=== PATIENT | male | born 1990 | race Caucasian/White ===

== ENCOUNTER 2016-09-04 15:15 | Emergency (ER) | payer OTHER ==
[~2016-09-04] VITALS: Ht 170.2 cm; Wt 48.3 kg
[~2016-09-04 15:15] MED LIST: OXYC-57 PO
[2016-09-04 15:31] VITALS: BP 102/67; PULSE 93; TEMP 36.8; Ht 170.2 cm; Wt 48.3 kg
[2016-09-04 15:33] VITALS: O2SAT 98
== END 2016-09-04 15:55 | disposition left against medical advice (07) ==
LOC: C.EDB 15:17
DX: R06.00 Dyspnea, unspecified (principal)

== ENCOUNTER 2016-12-25 13:08 | Emergency (ER) | payer SELFPAY ==
[~2016-12-25] VITALS: Ht 170.2 cm; Wt 53.8 kg
[2016-12-25 13:31] VITALS: TEMP 36.5; O2SAT 98; Ht 170.2 cm; Wt 53.8 kg
[2016-12-25] MEDS ORDERED: OXYCODONE HCL IR 5 MG TAB (IMMEDIATE RELEASE) PO STA (13:44)
[2016-12-25] MEDS ORDERED: ONDANSETRON 4MG OD TAB PO ONE (13:45)
--- NOTE | 2016-12-25 14:33 | DIAGNOSTIC IMAGING REPORT ---
CERVICAL SPINE CT CT DOSE: 371.24 mGycm HISTORY: Pain PLEITEZ/neck pain TECHNIQUE: Multiaxial CT images of the cervical spine were performed and reformatted in the sagittal and coronal plane without the use of contrast. COMPARISON: 07/03/2010 FINDINGS: Mild concave deformity superior endplate T1. This appears represent an interval finding. Age is uncertain no was not present on the prior study. It is, however identified on MRI of 06/15/2016. The remainder the cervical spine is unremarkable. There are no new or additional findings. IMPRESSION: No acute process of the cervical spine. Slight concave deformity superior endplate T1 considered nonacute. Electronically signed by: Avery Atwood M.D. 12/25/2016 2:32 PM Dictated Date/Time: 12/25/2016 2:30 PM
--- NOTE | 2016-12-25 14:36 | DIAGNOSTIC IMAGING REPORT ---
CT OF THE HEAD WITHOUT CONTRAST CLINICAL HISTORY: Headache with visual disturbance. COMPARISON STUDY: Head CT June 03, 2012. CT DOSE: 638.56 mGycm TECHNIQUE: Helical axial images of the head were obtained without IV contrast. Automated exposure control was utilized for the study. FINDINGS: No acute intracranial hemorrhage, midline shift or mass effect is present. Ventricular system is normal. Basilar cisterns are patent. There are no extra-axial collections. Holland-white differentiation is preserved. There are no findings to suggest acute dural sinus thrombosis or acute territorial infarct. Bilateral basal ganglia calcification is unchanged. There are no significant calvarial abnormalities. Visualized portions of the sinuses and mastoid air cells are clear. IMPRESSION: No acute intracranial findings. Electronically signed by: Jose Long M.D. 12/25/2016 2:35 PM Dictated Date/Time: 12/25/2016 2:32 PM
[2016-12-25] MEDS ORDERED: OXYC1TAB3 PO (15:09)
[2016-12-25] MEDS ORDERED: ONDA4TAB10 SL (15:09)
[2016-12-25 15:11] VITALS: BP 82/39; PULSE 73
--- NOTE | 2016-12-25 22:28 | EMERGENCY ROOM VISIT NOTE ---
History First contact with patient: 13:34 Chief Complaint: HEADACHE Stated Complaint: HEAD ACHE History of Present Illness The patient is a 26 year old male who presents to the Emergency Room with complaints of a headache, blurred vision, light sensitivity, neck discomfort and tingling in his fingertips of both hands. The patient reports that he was at work this morning when symptoms developed approximately 2 hours prior to arrival. He denies performing any significant strenuous activities, moving 2x4s this morning. He reports that the tingling in his fingers is intermittent. He does have slightly worsening tingling sensation with movement of the neck. The patient reports that he did see a chiropractor on Sunday for an adjustment, but did not have any worsening neck pain after these procedures. The patient reports that he has a prior history of undiagnosed migraines, and reports that he usually has light sensitivity and blurred vision. However, he reports that this headache is different. It was not thunderclap onset. The patient does report mild nausea. He reports that the visual disturbance is like little wiggly lines. He denies any visual field defects. The patient has a significant history of cervical spine and multiple thoracic compression fractures related to a work injury from last April when roof trusses fell onto his head. He was treated by Dr. Ely, and has been released from their care with his last appointment approximately 2 months ago. The patient rates his discomfort a 10 out of 10. Review of Systems HEENT: Denies dizziness, visual problems, hearing loss, tinnitus. Denies difficulty swallowing or oral lesions. PULMONARY: Denies cough, shortness of breath, sputum production or hemoptysis. CARDIOVASCULAR: Denies chest pain, palpitations, dyspnea on exertion, orthopnea or peripheral edema. GASTROINTESTINAL: Denies diarrhea, constipation, nausea, vomiting, or abdominal pain. GENITOURINARY: Denies dysuria, frequency, urgency or nocturia. NEUROLOGIC: Denies history of epilepsy, CVA, TIA or chronic headaches. MUSCULOSKELETAL: See history of present illness for history of cervical spine and thoracic compression fractures. SKIN: Denies rashes or lesions. PSYCHIATRIC: Denies history of depression or mental illness. ENDOCRINE: Denies history of diabetes or thyroid disorders. Past Medical/Surgical History Medical Problems: (1) Acute bronchitis (2) Cough (3) Dental caries (4) Pain, dental (5) Tietze's Disease Family History FH: diabetes mellitus FH: hypertension Social History Smoking Status: Current Every Day Smoker Alcohol Use: none Drug Use: none Marital Status: in relationship Housing Status: lives with significant other Occupation Status: employed Current/Historical Medications Scheduled Ondasetron Odt (Zofran Odt), 4 MG SL Q6H Scheduled PRN Oxycodone Ir (Roxicodone Ir), 1-2 TAB PO Q4H PRN for Pain Allergies Coded Allergies: No Known Allergies (Verified , 06/05/16) Physical Exam Vital Signs Date Time Temp Pulse Resp B/P Pulse Ox O2 Delivery O2 Flow Rate FiO2 12/25/16 15:11 73 16 82/39 Room Air 12/25/16 13:31 36.5 91 18 116/73 98 Room Air Physical Exam CONSTITUTIONAL: Healthy and well nourished. Alert and oriented X 3 with positive affect. Patient appears in mild to moderate discomfort from pain. HEENT: Normocephalic, atraumatic. Pupils equal, round and reactive. Ears and nares are clear. The patient is slightly photophobic, precluding funduscopic exam. No subconjunctival hemorrhage or conjunctival pallor. NECK: Right lateral gaze causes discomfort into the left upper extremity. No JVD or carotid bruits. The patient has mild tenderness to palpation of the cervical musculature. No palpable rigidity. RESPIRATORY: Clear to auscultation bilaterally with no wheezing, crackles, rhonchi or stridor. CARDIOVASCULAR: Regular rate and rhythm with no murmurs, rubs or gallops. GASTROINTESTINAL: Bowel sounds present in all quadrants. Soft and nontender to palpation. MUSCULOSKELETAL: Equal hand furniture sprayer bilaterally. The patient has no worsening pain with range of motion of the shoulders. No tenderness to palpation through the intrascapular region or trapezius muscles. INTEGUMENTARY: No rash or other significant dermatologic conditions noted. NEUROLOGIC: Cranial nerves II-XII grossly intact. No focal neurologic deficits noted. Normal finger to nose test. Negative pronator drift. No ataxia with ambulation. Medical Decision & Procedures ER Provider Diagnostic Interpretation: Noncontrast CT of the head does not show any intracranial bleed, midline shift or mass effect. Radiologist report is as follows: CT OF THE HEAD WITHOUT CONTRAST CLINICAL HISTORY: Headache with visual disturbance. COMPARISON STUDY: Head CT June 03, 2012. CT DOSE: 638.56 mGycm TECHNIQUE: Helical axial images of the head were obtained without IV contrast. Automated exposure control was utilized for the study. FINDINGS: No acute intracranial hemorrhage, midline shift or mass effect is present. Ventricular system is normal. Basilar cisterns are patent. There are no extra-axial collections. Holland-white differentiation is preserved. There are no findings to suggest acute dural sinus thrombosis or acute territorial infarct. Bilateral basal ganglia calcification is unchanged. There are no significant calvarial abnormalities. Visualized portions of the sinuses and mastoid air cells are clear. IMPRESSION: No acute intracranial findings. Noncontrast CT of the cervical spine does not show any acute fracture, lordotic reversal or subluxation. Radiologist report is as follows: CERVICAL SPINE CT CT DOSE: 371.24 mGycm HISTORY: Pain PLEITEZ/neck pain TECHNIQUE: Multiaxial CT images of the cervical spine were performed and reformatted in the sagittal and coronal plane without the use of contrast. COMPARISON: 07/03/2010 FINDINGS: Mild concave deformity superior endplate T1. This appears represent an interval finding. Age is uncertain no was not present on the prior study. It is, however identified on MRI of 06/15/2016. The remainder the cervical spine is unremarkable. There are no new or additional findings. IMPRESSION: No acute process of the cervical spine. Slight concave deformity superior endplate T1 considered nonacute. Medications Administered Medications (Trade) Dose Ordered Sig/Lizzie Route Start Time Stop Time Status Last Admin Dose Admin Oxycodone HCl (Roxicodone Immediate Rel Tab) 5 mg NOW STAT PO 12/25/16 13:44 12/25/16 13:46 DC 12/25/16 13:58 5 MG Ondansetron HCl (Zofran Odt) 4 mg ONE ONCE PO 12/25/16 13:45 12/25/16 13:46 DC 12/25/16 13:59 4 MG ED Course Patient history and physical exam were performed. Nurse's notes were reviewed. The patient was administered OxyIR 5 mg and Zofran 4 mg ODT for pain. Noncontrast CT of the head and cervical spine did not show any intracranial bleed or fracture. The patient was advised of his CT findings. With his given visual disturbance and photophobia, I do believe that the patient is suffering from a migraine headache. He was instructed to rest and remain hydrated. The patient was provided prescriptions for OxyIR and Zofran ODT. He was instructed to follow-up with his PCP within the next 2-3 days for recheck. Return to the emergency department sooner for any significantly worsening symptoms. The patient was happy with plan of care, voiced understanding of all discharge instructions, and rated his headache a 5 out of 10 at the time of discharge. He refused any additional analgesics prior to discharge. Medical Decision See previous section Impression Primary Impression: Headache Departure Information Prescriptions Ondasetron Odt (ZOFRAN ODT) 4 Mg Tab 4 MG SL Q6H for Nausea, #10 TAB Prov: Sheldon Storm PA 12/25/16 Oxycodone Ir (Roxicodone Ir) 5 Mg Tab 1-2 TAB PO Q4H Y for Pain, #15 TAB For Initial Treatment Prov: Sheldon Storm PA 12/25/16 Referrals No Doctor, Assigned (PCP) Patient Instructions My [facility] Problem Qualifiers Primary Impression: Headache Headache type: other headache syndrome Qualified Codes: G44.89 - Other headache syndrome
== END 2016-12-25 15:20 | disposition home or self-care (01) ==
LOC: C.EDB 13:09 → C.EDC 15:20
DX: G44.89 Other headache syndrome (principal); M94.0 Chondrocostal junction syndrome [Tietze]; Z83.3 Family history of diabetes mellitus; Z82.49 Family history of ischemic heart disease and other diseases of the circulatory system; F17.210 Nicotine dependence, cigarettes, uncomplicated

== ENCOUNTER 2017-01-22 18:21 | Emergency (ER) | payer OTHER ==
[~2017-01-22] VITALS: Ht 170.2 cm; Wt 51.0 kg
[~2017-01-22 18:21] MED LIST changes: +ONDA4TAB10 SL; -OXYC-57 PO; +OXYC1TAB3 PO
[2017-01-22 18:37] VITALS: TEMP 37; Ht 170.2 cm; Wt 51.0 kg
[2017-01-22] MEDS ORDERED: OXYCODONE HCL IR 5 MG TAB (IMMEDIATE RELEASE) PO STA (18:46)
--- NOTE | 2017-01-22 18:55 | EMERGENCY ROOM VISIT NOTE ---
History Report prepared by Zabrina: Livia Bey Under the Supervision of: Dr. Luciano June D.O. First contact with patient: 18:40 Chief Complaint: GROIN PAIN Stated Complaint: GROIN PAIN History of Present Illness The patient is a 26 year old male who presents to the Emergency Room with complaints of constant groin pain beginning yesterday. The patient states that he was moving dirt around with his dad yesterday and noticed that he got a bug bite on his right butt cheek. He reports that he is also having soreness in his groin and body aches as well. He notes that he has never had lyme disease before and has no medical problems or previous surgeries. The patient states that he broke his back and neck previously. Source of History: patient Onset: yesterday Position: other (groin) Quality: other (sore) Timing: constant Note: Pt has body aches and bug bite. Review of Systems See HPI for pertinent positives & negatives. A total of 10 systems reviewed and were otherwise negative. Past Medical & Surgical Medical Problems: (1) Acute bronchitis (2) Cough (3) Dental caries (4) Pain, dental (5) Tietze's Disease Family History FH: diabetes mellitus FH: hypertension Social History Smoking Status: Current Every Day Smoker Alcohol Use: none Drug Use: none Marital Status: in relationship Housing Status: lives with significant other Occupation Status: employed Current/Historical Medications Scheduled Doxycycline (Monohydrate) (Doxycycline Monohydrate), 100 MG PO BID Ondasetron Odt (Zofran Odt), 4 MG SL Q6H Scheduled PRN Oxycodone Immediate Rel Tab (Roxicodone Ir), 1-2 TAB PO Q4H PRN for Severe Pain Oxycodone Ir (Roxicodone Ir), 1-2 TAB PO Q4H PRN for Pain Allergies Coded Allergies: No Known Allergies (Verified , 06/05/16) Physical Exam Vital Signs Date Time Temp Pulse Resp B/P Pulse Ox O2 Delivery O2 Flow Rate FiO2 01/22/17 20:02 82 18 111/71 97 Room Air 01/22/17 18:37 37.0 93 18 108/69 98 Room Air Physical Exam GENERAL: Patient is awake, alert, and in no acute distress. Patient is resting comfortably and showing no signs of anxiety EYES: The conjunctivae are clear. The pupils are round and reactive. EARS, NOSE, MOUTH AND THROAT: The nose is without any evidence of any deformity. Mucous membranes are moist tongue is midline NECK: The neck is nontender and supple. RESPIRATORY: Normal respiratory effort is noted there is no evidence of wheezing rhonchi or rales CARDIOVASCULAR: Regular rate and rhythm noted there no murmurs rubs or gallops normal S1 normal S2 GASTROINTESTINAL: The abdomen is soft. Bowel sounds are present in all quadrants. Abdomen is nontender PELVIS: The Pelvis is stable. No tenderness to palpation is noted. MUSCULOSKELETAL/EXTREMITIES: There is no evidence of gross deformity full range of motion is noted in the hips and shoulders SKIN: There is no obvious evidence of any rash. There are no petechiae, pallor or cyanosis noted. There was no pedal edema noted, there was a Bullseye rash over the right buttock, there was right inguinal adenopathy noted which was tender to palpation NEUROLOGIC: Patient is awake alert and oriented x3 Medical Decision & Procedures Laboratory Results 01/22/17 19:08 Red Blood Count 4.85, Mean Corpuscular Volume 88.0, Mean Corpuscular Hemoglobin 29.3, Mean Corpuscular Hemoglobin Concent 33.3, Mean Platelet Volume 10.6, Neutrophils (%) (Auto) 66.3, Lymphocytes (%) (Auto) 22.0, Monocytes (%) (Auto) 7.1, Eosinophils (%) (Auto) 4.2, Basophils (%) (Auto) 0.3, Neutrophils # (Auto) 5.69, Lymphocytes # (Auto) 1.89, Monocytes # (Auto) 0.61, Eosinophils # (Auto) 0.36, Basophils # (Auto) 0.03 01/22/17 19:08 Test 01/22/17 19:08 White Blood Count 8.59 K/uL (4.8-10.8) Red Blood Count 4.85 M/uL (4.7-6.1) Hemoglobin 14.2 g/dL (14.0-18.0) Hematocrit 42.7 % (42-52) Mean Corpuscular Volume 88.0 fL (80-100) Mean Corpuscular Hemoglobin 29.3 pg (25-34) Mean Corpuscular Hemoglobin Concent 33.3 g/dl (32-36) Platelet Count 174 K/uL (130-400) Mean Platelet Volume 10.6 fL (7.4-10.4) Neutrophils (%) (Auto) 66.3 % Lymphocytes (%) (Auto) 22.0 % Monocytes (%) (Auto) 7.1 % Eosinophils (%) (Auto) 4.2 % Basophils (%) (Auto) 0.3 % Neutrophils # (Auto) 5.69 K/uL (1.4-6.5) Lymphocytes # (Auto) 1.89 K/uL (1.2-3.4) Monocytes # (Auto) 0.61 K/uL (0.11-0.59) Eosinophils # (Auto) 0.36 K/uL (0-0.5) Basophils # (Auto) 0.03 K/uL (0-0.2) RDW Standard Deviation 42.3 fL (36.4-46.3) RDW Coefficient of Variation 13.0 % (11.5-14.5) Immature Granulocyte % (Auto) 0.1 % Immature Granulocyte # (Auto) 0.01 K/uL (0.00-0.02) Anion Gap 4.0 mmol/L (3-11) Est Creatinine Clear Calc Drug Dose 83.5 ml/min Estimated GFR () 125.8 Estimated GFR (Non- 108.5 BUN/Creatinine Ratio 20.1 (10-20) Calcium Level 8.3 mg/dl (8.5-10.1) Total Bilirubin 0.2 mg/dl (0.2-1) Direct Bilirubin < 0.1 mg/dl (0-0.2) Aspartate Amino Transf (AST/SGOT) 14 U/L (15-37) Alanine Aminotransferase (ALT/SGPT) 19 U/L (12-78) Alkaline Phosphatase 64 U/L (45-117) Total Protein 6.4 gm/dl (6.4-8.2) Albumin 3.4 gm/dl (3.4-5.0) Lyme Disease IgG Antibody NEG (NEG) Lyme Disease IgM Antibody NEG (NEG) Laboratory results per my review. Medications Administered Medications (Trade) Dose Ordered Sig/Lizzie Route Start Time Stop Time Status Last Admin Dose Admin Oxycodone HCl (Roxicodone Immediate Rel Tab) 5 mg NOW STAT PO 01/22/17 18:46 01/22/17 18:48 DC 01/22/17 18:55 5 MG Doxycycline Hyclate (Vibramycin Cap) 200 mg ONE ONCE PO 01/22/17 19:00 01/22/17 19:01 DC 01/22/17 18:55 200 MG ED Course 1839: The patient was evaluated in room B5. A complete history and physical examination were performed. 1845: Oxycodone HCl 5mg PO. 1899: Vibramycin Cap 200mg PO. 2031: Upon reevaluation, the patient is doing well. I discussed the results and treatment plan with the patient. He verbalized agreement of the treatment plan. The patient was discharged home. Medical Decision Differential diagnosis: Etiologies such as contact dermatitis, viral exanthem, urticaria, allergic reaction, Perez-Guero syndrome, toxic epidermal necrolysis, erythema multiforme, cellulitis, scabies, HSV, varicella, zoster, eczema, staph scalded skin syndrome, fungal infection, as well as others were entertained. Medication Reconciliation: I attest that I have personally reviewed the patient' s current medications list. Blood pressure screening: Patient was found to have normal blood pressure on screening and does not require follow-up. Nursing notes reviewed. The patient is a 26-year-old male who presented to the emergency department for an evaluation of right groin pain. The patient appears to have inguinal adenopathy on the right and also noticed a rash on his right buttocks. The rash appears to be consistent with Lyme disease. He does admit that he has risk factors including significant outdoor time where he could've had a tick bite. The patient was started on doxycycline and pain medication in the emergency department. He was encouraged to follow-up with his primary care physician for repeat laboratory studies. He was also encouraged to continue all medications as prescribed and return to the emergency department immediately if symptoms change worsen or the need arises. Impression Primary Impression: Lyme disease, acute Scribe Attestation The scribe's documentation has been prepared under my direction and personally reviewed by me in its entirety. I confirm that the note above accurately reflects all work, treatment, procedures, and medical decision making performed by me. Departure Information Dispostion Home / Self-Care Prescriptions Doxycycline (Monohydrate) (DOXYCYCLINE MONOHYDRATE) 100 Mg Tab 100 MG PO BID, #42 TABS Prov: Luciano June, DO 01/22/17 Oxycodone Immediate Rel Tab (ROXICODONE IR) 5 Mg Tab 1-2 TAB PO Q4H Y for Severe Pain, #24 TAB Prov: Luciano June, DO 01/22/17 Referrals No Doctor, Assigned (PCP) Forms HOME CARE DOCUMENTATION FORM, IMPORTANT VISIT INFORMATION, WORK / SCHOOL INSTRUCTIONS Patient Instructions Bites Tick, My [employer] Additional Instructions Continue all medications as prescribed. Continue using Motrin and Tylenol as directed for mild pain. Follow-up with your family next week for reevaluation. I would recommend repeat laboratory studies.
[2017-01-22] MEDS ORDERED: DOXYCYCLINE HYCLATE 100 MG CAP PO ONE (19:00)
[2017-01-22] MEDS ORDERED: DOXY100T17 PO (19:15)
[2017-01-22] MEDS ORDERED: OXYC1TAB3 PO (19:15)
[2017-01-22 19:20] LABS: BASO % 0.3 %; BASO ABS # 0.03 K/uL (0-0.2); COMPLETE YES; EOS % 4.2 %; HEMATOCRIT 42.7 % (42-52); IG% 0.1 %; LYMPH ABS # 1.89 K/uL (1.2-3.4); MEAN CORPUSCULAR HEMOGLOBIN 29.3 pg (25-34); MEAN CORPUSCULAR HGB CONC 33.3 g/dl (32-36); MEAN PLATELET VOLUME 10.6 fL (7.4-10.4); MONO % 7.1 %; NEUT % 66.3 %; PLATELET COUNT 174 K/uL (130-400); RED BLOOD COUNT 4.85 M/uL (4.7-6.1); WHITE BLOOD COUNT 8.59 K/uL (4.8-10.8)
[2017-01-22 19:38] LABS: ALT/SGPT 19 U/L (12-78); AST/SGOT 14 U/L (15-37); BLOOD UREA NITROGEN 19 mg/dl (7-18); BUN/CREATININE RATIO 20.1 (10-20); CALCIUM 8.3 mg/dl (8.5-10.1); CARBON DIOXIDE 30 mmol/L (21-32); CHLORIDE 110 mmol/L (98-107); CREATININE 0.95 mg/dl (0.60-1.40); GLUCOSE 92 mg/dl (70-99); POTASSIUM 3.7 mmol/L (3.5-5.1); SODIUM 144 mmol/L (136-145)
[2017-01-22 19:41] LABS: ALKALINE PHOSPHATASE 64 U/L (45-117)
[2017-01-22 20:02] VITALS: BP 111/71; PULSE 82; O2SAT 97
[2017-01-22 20:09] LABS: LYME DISEASE AB IGG NEG (NEG); LYME DISEASE AB IGM NEG (NEG)
== END 2017-01-22 20:32 | disposition home or self-care (01) ==
LOC: C.EDB 18:22
DX: A69.20 Lyme disease, unspecified (principal); M94.0 Chondrocostal junction syndrome [Tietze]; Z83.3 Family history of diabetes mellitus; Z82.49 Family history of ischemic heart disease and other diseases of the circulatory system; F17.210 Nicotine dependence, cigarettes, uncomplicated

== ENCOUNTER 2017-02-03 19:50 | Emergency (ER) | payer SELFPAY ==
[~2017-02-03] VITALS: Ht 170.2 cm; Wt 50.3 kg
[~2017-02-03 19:50] MED LIST changes: +DOXY100T17 PO
[2017-02-03 19:53] VITALS: TEMP 36.6; Ht 170.2 cm; Wt 50.3 kg
[2017-02-03] MEDS ORDERED: ACETAMINOPHEN 500 MG TAB PO STA (20:25)
[2017-02-03 20:40] VITALS: BP 121/78; PULSE 78; O2SAT 97
--- NOTE | 2017-02-04 02:01 | EMERGENCY ROOM VISIT NOTE ---
History Report prepared by Zabrina: Carlos Borden Under the Supervision of: Dr. Narinder Cool D.O. First contact with patient: 20:01 Chief Complaint: HAND PAIN/INJURY Stated Complaint: HAND PAIN,BI LAT History of Present Illness The patient is a 26 year old male who presents to the Emergency Room with complaints of a constant burning sensation in both of his hands starting three days ago. He reports his pain as a 7/10 in severity. The patient states that he was diagnosed with Lyme's disease two weeks ago. He states that he was given a blood test that showed he was negative for Lyme's disease, but the doctor's gave him Doxycycline, which he has been consistently taking since. The patient admits he was out in the sun three days ago and noticed that his hands became red. He reports that the pain felt like a burning and tingling sensation in his hands. The patient denies wearing any gloves or a long sleeve shirt while out in the sun. He admits that he broke his neck and back a few months ago causing him to stop working. The patient denies headache, change in vision, fevers, chest pain, shortness of breath, nausea, vomiting, diarrhea, and pain with urination. He also denies any pets, new medication, or new eating/drinking habits. Source of History: patient Onset: three days ago Position: hand (bilateral) Symptom Intensity: 7/10 Quality: tingling, burning, other Timing: constant Associated Symptoms: No fevers, No headache, No cough, No chest pain, No nausea, No vomiting, No melena, No urinary symptoms Review of Systems See HPI for pertinent positives & negatives. A total of 10 systems reviewed and were otherwise negative. Past Medical & Surgical Medical Problems: (1) Acute bronchitis (2) Cough (3) Dental caries (4) Pain, dental (5) Tietze's Disease Family History FH: diabetes mellitus FH: hypertension Social History Smoking Status: Former Smoker Alcohol Use: none Drug Use: none Marital Status: in relationship Housing Status: lives with significant other Occupation Status: employed Current/Historical Medications Scheduled Doxycycline (Monohydrate) (Doxycycline Monohydrate), 100 MG PO BID Ondasetron Odt (Zofran Odt), 4 MG SL Q6H Scheduled PRN Oxycodone Immediate Rel Tab (Roxicodone Ir), 1-2 TAB PO Q4H PRN for Severe Pain Allergies Coded Allergies: No Known Allergies (Verified , 06/05/16) Physical Exam Vital Signs Date Time Temp Pulse Resp B/P (MAP) Pulse Ox O2 Delivery O2 Flow Rate FiO2 02/03/17 20:40 78 16 121/78 97 02/03/17 19:53 36.6 74 16 113/74 97 Room Air Physical Exam GENERAL: sitting up in bed, alert, well appearing, well nourished, no distress, non-toxic EYE EXAM: normal conjunctiva, PERRL and EOM's grossly intact OROPHARYNX: no exudate, no erythema, lips, buccal mucosa, and tongue normal and mucous membranes are moist NECK: supple, no nuchal rigidity, no adenopathy, non-tender LUNGS: Clear to auscultation. Normal chest wall mechanics HEART: no murmurs, S1 normal and S2 normal ABDOMEN: abdomen soft, non-tender, normo-active bowel sounds, no masses, no rebound or guarding. SKIN: Erythema to bilateral hands; entirety of the first and second digits and along the metacarpals tracking to the wrist on the 3rd to 5th digits. Slight erythema to bilateral forearms, dorsal aspect, tracking to elbow. UPPER EXTREMITIES: upper extremities are grossly normal. LOWER EXTREMITIES: No pitting edema. NEURO EXAM: Normal sensorium Medical Decision & Procedures Medications Administered Medications (Trade) Dose Ordered Sig/Lizzie Route Start Time Stop Time Status Last Admin Dose Admin Acetaminophen (Tylenol Tab) 1,000 mg NOW STAT PO 02/03/17 20:25 02/03/17 20:26 DC 02/03/17 20:37 1,000 MG ED Course ED COURSE: Vital signs were reviewed and showed hypertensive. The patients medical record was reviewed The above diagnostic studies were performed and reviewed. ED treatments and interventions as stated above. 2011: The patient was evaluated in room B09. A complete history and physical examination was performed. 2024: Tylenol Tab 1000 mg PO. 2037: Upon reevaluation, the patient is feeling better. I discussed the findings and the treatment plan with the patient. He verbalizes agreement and understanding. He was discharged home. Medical Decision The differential diagnosis includes: Etiologies such as contact dermatitis, viral exanthem, urticaria, allergic reaction, Perez-Guero syndrome, toxic epidermal necrolysis, erythema multiforme, cellulitis, scabies, HSV, varicella, zoster, eczema, staph scalded skin syndrome, fungal infection, as well as others were entertained. Patient is a 26-year-old male who is currently on doxycycline and presents the ER for bilateral hand pain. On exam he does have erythema which does have linear cut off sign appears to be a sunburn. Patient for active and passive range of motion. This is not a cellulitis. I do not believe that this is allergic. Patient was instructed to refrain from being in the sun while on doxycycline and discharged follow-up with his PCP. Discussed with Pt concerning signs and symptoms to watch out for. Pt was instructed to follow up with their PCP and discussed with the patient their option to return to the ED at anytime for persistent or worsening symptoms. The appropriate anticipatory guidance and out-patient management, including indications for return to the emergency department, were explained at length to the patient and understood. Impression Primary Impression: [place] Scribe Attestation The scribe's documentation has been prepared under my direction and personally reviewed by me in its entirety. I confirm that the note above accurately reflects all work, treatment, procedures, and medical decision making performed by me. Departure Information Dispostion Home / Self-Care Forms HOME CARE DOCUMENTATION FORM, IMPORTANT VISIT INFORMATION Patient Instructions My [facility] [place] Additional Instructions Please follow up with your primary care doctor with in the next 24 hours. Any worsening of your symptoms, please return to the ED immediately. This includes trouble breathing, trouble swallowing, worsening rash, fevers greater than 100.4 , or any other concerning signs or symptoms from your standpoint. Please apply aloe as needed. Please take Tylenol or Motrin as needed for pain. Please refrain from being in the sun while taking doxycycline.
== END 2017-02-03 20:42 | disposition home or self-care (01) ==
LOC: C.EDB 19:51
DX: L55.9 Sunburn, unspecified (principal); Z87.898 Personal history of other specified conditions; Z87.891 Personal history of nicotine dependence; Z83.3 Family history of diabetes mellitus; Z82.49 Family history of ischemic heart disease and other diseases of the circulatory system

== ENCOUNTER 2017-06-25 15:35 | Emergency (ER) | payer OTHER ==
[~2017-06-25] VITALS: Ht 170.2 cm; Wt 52.5 kg
[2017-06-25 15:45] VITALS: TEMP 36.9; Ht 170.2 cm; Wt 52.5 kg
[2017-06-25] MEDS ORDERED: KETOROLAC TROMETHAMINE 60 MG/2 ML VIAL IM STA (16:04)
--- NOTE | 2017-06-25 16:23 | EMERGENCY ROOM VISIT NOTE ---
History First contact with patient: 15:53 Chief Complaint: HEADACHE Stated Complaint: HEADACHE History of Present Illness The patient is a 26 year old male who presents to the Emergency Room with complaints of left-sided head and neck pain which has been ongoing for several months. The patient reports that he sustained an injury at work approximately one year ago when several trusses fell onto him. He reports he had fractures in his neck and back at that time. He has been following up with the Workmen's Compensation provider in [place]. He reports he had a CT and MRI performed at the beginning of this month for increasing pain. He was told that there was fluid in the sinuses and was referred to another specialist for this. The patient reports that he is sick of dealing with the pain. The pain is in the left side of the neck and radiates into the head and occasionally into the left arm. He rates his overall discomfort a 9/10. He has not been given any prescriptions for pain medications and has not taken any anti-inflammatories for his neck pain. He denies any new injuries. He denies numbness or weakness of the arm. Review of Systems A complete 10 point review of systems was reviewed with the patient with pertinent positives and negatives as per history of present illness. All else were negative. Past Medical/Surgical History Medical Problems: (1) Acute bronchitis (2) Cough (3) Dental caries (4) Pain, dental (5) Tietze's Disease Family History FH: diabetes mellitus FH: hypertension Social History Smoking Status: Current Every Day Smoker Alcohol Use: none Drug Use: none Marital Status: in relationship Housing Status: lives with significant other Occupation Status: employed Current/Historical Medications Scheduled Amoxicillin & Pot Clavulanate (Augmentin 875-125 mg), 1 TAB PO BID Naproxen (Naprosyn), 500 MG PO BID Scheduled PRN Ibuprofen Tab (Advil), 400-600 MG PO Q6H PRN for Headache or Pain Physical Exam Vital Signs Date Time Temp Pulse Resp B/P (MAP) Pulse Ox O2 Delivery O2 Flow Rate FiO2 06/25/17 17:07 76 16 108/69 96 Room Air 06/25/17 15:45 36.9 86 20 114/79 98 Room Air Physical Exam VITALS: Vitals are noted on the nurse's note and reviewed by myself. Vital signs stable. GENERAL: This is a 26-year-old male, in no acute distress, nondiaphoretic, well- developed well-nourished. SKIN: The skin was without rashes, erythema, edema, or bruising. There is no tenting of the skin. Capillary reflex less than 2 seconds. HEAD: Normocephalic atraumatic. EARS: External auditory canals clear, tympanic membranes pearly merino without erythema or effusion bilaterally. EYES: Pupils equal round and reactive to light and accommodation. Conjunctivae without injection, sclerae without icterus. MOUTH: Mucous membranes moist. HEART: Regular rate and rhythm without murmurs gallops or rubs. LUNGS: Clear to auscultation bilaterally without wheezes, rales or rhonchi. MUSCULOSKELETAL: There is tenderness to palpation of the left cervical paraspinous muscles. No tenderness of the cervical spinous processes. Full range of motion in all extremities. Strength 5/5 throughout. NEURO: Patient was alert and oriented to person place and time. Normal sensation to light and sharp touch. Medical Decision & Procedures Medications Administered Medications (Trade) Dose Ordered Sig/Lizzie Route Start Time Stop Time Status Last Admin Dose Admin Ketorolac Tromethamine (Toradol Inj) 60 mg NOW STAT IM 06/25/17 16:04 06/25/17 16:05 DC 06/25/17 16:15 60 MG ED Course The patient was evaluated as above. Patient was medicated with 60 mg Toradol IM. Patient was reevaluated and stated he was having some relief. Discharge instructions were reviewed with the patient. The patient verbalized understanding of my assessment and treatment plan and was discharged home in good condition. Medical Decision Differential diagnosis includes cervical radiculopathy, herniated disc, muscular pain, migraine headaches, among others. The patient is a 26-year-old male who presents today complaining of left-sided neck pain and headaches which have been present for several months. The patient has been following up with Workmen's Compensation for one year after an injury to the neck. He has had recent imaging including CT and MRI of the neck. I do not feel that further workup is necessary at this time. I did offer the patient a prescription of an anti-inflammatory and an injection of Toradol here. The patient also reports that he was told he had a sinus infection, but was not treated with any antibiotics. I am unsure if he truly has a sinusitis, but did offer to place him on a course of antibiotics. He was encouraged to follow-up with his own Workmen's Compensation provider and contact them regarding possible referral to pain management. Based on the patient's presentation and work up, I feel the patient is stable for outpatient treatment. The patient was educated to return to the emergency department for any worsening of their current condition or new/concerning symptoms. He will follow up with his Workmen's Compensation physician. Medication Reconcilliation Current Medication List: was personally reviewed by me Blood Pressure Screening Patient's blood pressure: Normal blood pressure Impression Primary Impression: Chronic neck pain Departure Information Dispostion Home / Self-Care Condition GOOD Prescriptions Amoxicillin & Pot Clavulanate (Augmentin 875-125 mg) 1 Tab Tab 1 TAB PO BID for 7 Days, #14 TAB Prov: Lyndsay Silver PA-C 06/25/17 Naproxen (Naprosyn) 500 Mg Tab 500 MG PO BID for 7 Days, #14 TAB Prov: Lyndsay Silver PA-C 06/25/17 Referrals No Doctor, Assigned (PCP) Patient Instructions My [facility] Additional Instructions You have been treated in the Emergency Department for Neck Pain. Naprosyn as prescribed. For pain control, you can use the following ozlz-hxy-zbxbdad medicines (if >12 yo): - Regular strength (325mg/tab) Tylenol (acetaminophen) 2 tabs every 4-6 hours as needed. Do not exceed 12 tablets in a 24 hour period. Avoid taking more than 4 grams (4000 mg) of Tylenol per day. This includes any other sources of acetaminophen you may take on a regular basis. Contact your workman's comp doctor about a possible referral to pain management. Return to the Emergency Department if your current symptoms worsen despite treatment course outlined above, or if you develop any of the following symptoms : intractable pain despite aforementioned treatment course, numbness/weakness of the arms, or any other new/concerning symptoms.
[2017-06-25] MEDS ORDERED: IBUP-103 PO (16:32)
[2017-06-25] MEDS ORDERED: NAPR-1169 PO (16:43)
[2017-06-25] MEDS ORDERED: AMOX875T PO (16:43)
[2017-06-25 17:07] VITALS: BP 108/69; PULSE 76; O2SAT 96
== END 2017-06-25 17:07 | disposition home or self-care (01) ==
LOC: C.EDB 15:36 → C.EDD 17:07
DX: M54.2 Cervicalgia (principal); M94.0 Chondrocostal junction syndrome [Tietze]; Z83.3 Family history of diabetes mellitus; Z82.49 Family history of ischemic heart disease and other diseases of the circulatory system; F17.200 Nicotine dependence, unspecified, uncomplicated

== ENCOUNTER → 2017-10-17 | Outpatient (CLI) | payer OTHER ==
[~2017-10-17] MED LIST changes: -DOXY100T17 PO; +IBUP-103 PO; -ONDA4TAB10 SL; -OXYC1TAB3 PO
[2017-10-17 16:05] LABS: CREATININE 0.88 mg/dl (0.60-1.40)
== END | disposition home or self-care (01) ==
LOC: C.LAB 14:11
PROVIDERS: ATTEND Neurological Surgery
DX: S06.0X0A Concussion without loss of consciousness, initial encounter (principal); S14.109A Unspecified injury at unspecified level of cervical spinal cord, initial encounter; S22.009A Unspecified fracture of unspecified thoracic vertebra, initial encounter for closed fracture; S34.109A Unspecified injury to unspecified level of lumbar spinal cord, initial encounter; F07.81 Postconcussional syndrome; X58.XXXA Exposure to other specified factors, initial encounter

== ENCOUNTER 2017-10-21 20:44 | Emergency (ER) | payer OTHER ==
[~2017-10-21] VITALS: Ht 170.2 cm; Wt 57.9 kg
[2017-10-21 20:47] VITALS: Ht 170.2 cm; Wt 57.9 kg
[2017-10-21] MEDS ORDERED: SODIUM CHLORIDE 0.9% 1000ML 1,000 ML IV STA (20:57)
[2017-10-21] MEDS ORDERED: PROCHLORPERAZINE 5 MG/ML 2 ML VIAL IV STA (20:57)
[2017-10-21] MEDS ORDERED: DiphenhydrAMINE HCL 50 MG/ML VIAL IV STA (20:57)
[2017-10-21 21:47] VITALS: BP 108/71; PULSE 91; TEMP 36.4; O2SAT 99
--- NOTE | 2017-10-21 21:57 | EMERGENCY ROOM VISIT NOTE ---
History Report prepared by Zabrina: Irma Jones Under the Supervision of: Dr. Yaron Gli M.D. First contact with patient: 20:52 Chief Complaint: HEADACHE Stated Complaint: HEADACHE History of Present Illness The patient is a 27 year old male who presents to the Emergency Room with complaints of a sudden headache starting 2 hours ago. The patient states that when he gets a headache Tylenol and Ibuprofen helps, but he states that it did not this time. He notes he has come to the ED in the past for headaches. The patient complains of his hands going numb and tingly on the way here. The patient denies recent trauma. No recent fever, chest pain, shortness of breath , changes in vision. He notes that he is a smoker. Source of History: patient Onset: 2 hours ago Position: head Quality: ache Timing: other (sudden) Associated Symptoms: + numbness Note: The patient complains of tingling in his hands. Review of Systems See HPI for pertinent positives and negatives. A total of ten systems were reviewed and were otherwise negative. Past Medical & Surgical Medical Problems: (1) Acute bronchitis (2) Cough (3) Dental caries (4) Pain, dental (5) Thoracic outlet syndrome (6) Tietze's Disease Family History FH: diabetes mellitus FH: hypertension Social History Smoking Status: Current Every Day Smoker Alcohol Use: none Drug Use: none Marital Status: in relationship Housing Status: lives with significant other Occupation Status: employed Current/Historical Medications Scheduled PRN Ibuprofen Tab (Advil), 400-600 MG PO Q6H PRN for Headache or Pain Allergies Coded Allergies: No Known Allergies (Verified , 10/21/17) Physical Exam Vital Signs Date Time Temp Pulse Resp B/P (MAP) Pulse Ox O2 Delivery O2 Flow Rate FiO2 10/21/17 21:47 36.4 91 18 108/71 99 10/21/17 20:47 36.4 91 18 108/71 99 Room Air Physical Exam Physical Exam GENERAL: He is oriented to person, place, and time. He appears well-developed and well-nourished. He does not appear distressed. HENT: Exam performed. Head: Normocephalic and atraumatic. Right Ear: External ear normal. No mastoid tenderness. Left Ear: External ear normal. No mastoid tenderness. Mouth/Throat: The oropharynx is clear and moist. No trismus in the jaw. No dental abscesses or uvula swelling. No oropharyngeal exudate or tonsillar abscesses. EYES: Conjunctivae and EOM are normal. Pupils are equal, round, and reactive to light. Right eye exhibits no discharge. Left eye exhibits no discharge. No scleral icterus. No AV nicking or palpable edema on funduscopic exam. NECK: Normal range of motion. Neck supple. No JVD present. No spinous process tenderness present. No carotid bruit present. No rigidity. No tracheal deviation and normal range of motion present. No Brudzinski's sign and no Kernig 's sign noted. CV: Normal rate, regular rhythm, normal heart sounds and intact distal pulses. There is no peripheral edema. Palpable radial pulses bue. PULM/CHEST: Effort normal and breath sounds normal. No respiratory distress. No stridor. He has no wheezes. He has no rales. Chest Wall: He exhibits no tenderness. ABD: The abdomen is soft. Bowel sounds are normal. He has no distension. No mass is present. There is no tenderness. There is no rebound, no guarding, no Rehman's sign and no tenderness at McBurney's point. Rovsig negative MUSC/SKEL: Normal range of motion. There is no peripheral edema, tenderness or deformity. LYMPH: No cervical adenopathy. NEURO: He is alert and oriented to person, place, and time. He has normal strength. No cranial nerve deficit or sensory deficit. Coordination and gait normal. GCS eye subscore is 4. GCS verbal subscore is 5. GCS motor subscore is 6. Cerebellar tests wnl. Grossly intact. Normal sensation within limits. SKIN: Skin is warm and dry. He is not diaphoretic. PSYCH: He has a normal mood and affect. His behavior is normal. Judgment and thought content normal. Medical Decision & Procedures Medications Administered Medications (Trade) Dose Ordered Sig/Lizzie Route Start Time Stop Time Status Last Admin Dose Admin Sodium Chloride 1,000 ml @ 999 mls/hr Q1H1M STAT IV 10/21/17 20:57 10/21/17 21:57 DC 10/21/17 21:18 999 MLS/HR Prochlorperazine Edisylate (Compazine Inj) 10 mg NOW STAT IV 10/21/17 20:57 10/21/17 20:58 DC 10/21/17 21:18 10 MG Diphenhydramine HCl (Benadryl Inj) 25 mg NOW STAT IV 10/21/17 20:57 10/21/17 20:58 DC 10/21/17 21:18 25 MG ED Course 2052: The patient was evaluated in room B12B. A complete history and physical exam was performed. 2056: Ordered Benadryl Inj 25 mg IV, Compazine Inj 10 mg Iv, NSS 1000 ml @ 999 mls/hr IV. 2139: I reevaluated the patient and his vitals are stable. The patient received IV medication Benadryl, Compazine, and approximately 500 cc normal saline. The patient states that he must go now. He states that he cannot wait for the CT. I explained to the patient that we wanted to obtain a CT of the head due to the acute onset of his headache to rule out ICH. The patient states that his symptoms have resolved and he no longer has a headache so he does not want the CT. The patient is alert and oriented x3. His repeat exam is negative including full neurological assessment. Patient is displaying no meningeal signs. The patient is going to be discharged. DISCHARGE - Plan of care discussed with patient and questions answered. The patient was given both verbal and printed discharge instructions. The patient verbalized understanding and ability to comply. The patient is to seek outpatient follow up as noted in the discharge instructions. The patient verbalized understanding and ability to comply. The patient is discharged in stable condition. The patient was instructed to return for worsening symptoms. Medical Decision 2052: The patient was evaluated in room B12B. A complete history and physical exam was performed. 2056: Ordered Benadryl Inj 25 mg IV, Compazine Inj 10 mg Iv, NSS 1000 ml @ 999 mls/hr IV. 2139: I reevaluated the patient and his vitals are stable. The patient received IV medication Benadryl, Compazine, and approximately 500 cc normal saline. The patient states that he must go now. He states that he cannot wait for the CT. I explained to the patient that we wanted to obtain a CT of the head due to the acute onset of his headache to rule out ICH. The patient states that his symptoms have resolved and he no longer has a headache so he does not want the CT. The patient is alert and oriented x3. His repeat exam is negative including full neurological assessment. Patient is displaying no meningeal signs. The patient is going to be discharged. DISCHARGE - Plan of care discussed with patient and questions answered. The patient was given both verbal and printed discharge instructions. The patient verbalized understanding and ability to comply. The patient is to seek outpatient follow up as noted in the discharge instructions. The patient verbalized understanding and ability to comply. The patient is discharged in stable condition. The patient was instructed to return for worsening symptoms. Medication Reconcilliation Current Medication List: was personally reviewed by me Blood Pressure Screening Patient's blood pressure: Normal blood pressure Blood pressure disposition: Did not require urgent referral Impression Primary Impression: Headache Scribe Attestation The scribe's documentation has been prepared under my direction and personally reviewed by me in its entirety. I confirm that the note above accurately reflects all work, treatment, procedures, and medical decision making performed by me. The chart was completed utilizing [employer] Speech voice recognition software. Grammatical errors, random word insertions, pronoun errors, and incomplete sentences are an occasional consequence of this system due to software limitations, ambient noise, and hardware issues. Any formal questions or concerns about the content, text, or information contained within the body of this dictation should be directly addressed to the physician for clarification. Departure Information Dispostion Home / Self-Care Referrals No Doctor, Assigned (PCP) Forms HOME CARE DOCUMENTATION FORM, IMPORTANT VISIT INFORMATION Patient Instructions [facility] Additional Instructions Return to the emergency department if you develop fever greater than 100.4, seizure, recurrence of your headache, nausea or vomiting Problem Qualifiers Primary Impression: Headache Headache type: unspecified Headache chronicity pattern: unspecified pattern Intractability: not intractable Qualified Codes: R51 - Headache
== END 2017-10-21 21:48 | disposition home or self-care (01) ==
LOC: C.EDB 20:45
DX: R51 Headache (principal); F17.200 Nicotine dependence, unspecified, uncomplicated; Z83.3 Family history of diabetes mellitus; Z82.49 Family history of ischemic heart disease and other diseases of the circulatory system

== ENCOUNTER 2017-11-17 17:00 | Emergency (ER) | payer OTHER ==
[~2017-11-17] VITALS: Ht 170.2 cm; Wt 59.0 kg
[2017-11-17 17:06] VITALS: TEMP 36.7; Ht 170.2 cm; Wt 59.0 kg
[2017-11-17] MEDS ORDERED: DiphenhydrAMINE HCL 50 MG/ML VIAL IM STA (17:44)
[2017-11-17] MEDS ORDERED: KETOROLAC TROMETHAMINE 60 MG/2 ML VIAL IM STA (17:44)
[2017-11-17] MEDS ORDERED: PROCHLORPERAZINE 5 MG/ML 2 ML VIAL IM STA (17:44)
[2017-11-17 18:33] VITALS: BP 142/68; PULSE 89; O2SAT 98
--- NOTE | 2017-11-17 23:15 | EMERGENCY ROOM VISIT NOTE ---
History First contact with patient: 17:22 Chief Complaint: HEADACHE Stated Complaint: HEADACHE History of Present Illness The patient is a 27 year old male who presents to the Emergency Room with complaints of chronic neck pain and headache. The patient reports that he has had this headache now for a week. The patient reports that he sustained a work injury in the past. He is currently under the management of Dr. Stockton, his Worker's Compensation physician in [place]. His next appointment with him is on 11/22/17. The patient also reports that he is scheduled for a surgical procedure on 12/11/17 with a neurosurgeon to rule out thoracic outlet syndrome. The patient reports that he has had a prior history of migraines in the past, but reports that this feels different without photophobia, nausea and vomiting. He denies any other recent injuries to his head or neck, and rates his discomfort a 7 out of 10. Review of Systems 10 system review was performed and was negative except for pertinent positives and negatives as indicated in history of present illness Past Medical/Surgical History Medical Problems: (1) Acute bronchitis (2) Cough (3) Dental caries (4) Pain, dental (5) Thoracic outlet syndrome (6) Tietze's Disease Family History FH: diabetes mellitus FH: hypertension Social History Smoking Status: Current Every Day Smoker Alcohol Use: none Drug Use: none Marital Status: in relationship Housing Status: lives with significant other Occupation Status: employed Current/Historical Medications No Active Prescriptions or Reported Meds Physical Exam Vital Signs Date Time Temp Pulse Resp B/P (MAP) Pulse Ox O2 Delivery O2 Flow Rate FiO2 11/17/17 18:33 89 20 142/68 98 11/17/17 17:06 36.7 105 18 115/76 97 Physical Exam CONSTITUTIONAL: Healthy and well nourished. Alert and oriented X 3 with positive affect. Patient appears in mild discomfort from pain. HEENT: Normocephalic, atraumatic. Pupils equal, round and reactive. Ears and nares are clear. No subconjunctival hemorrhage, scleral icterus or conjunctival injection. NECK: Patient has mild discomfort to palpation of the cervical musculature. No crepitance with range of motion. RESPIRATORY: Clear to auscultation bilaterally with no wheezing, crackles, rhonchi or stridor. CARDIOVASCULAR: Regular rate and rhythm with no murmurs, rubs or gallops. GASTROINTESTINAL: Bowel sounds present in all quadrants. MUSCULOSKELETAL: No tenderness to palpation through the trapezius muscles. The patient does have mildly worsened discomfort with range of motion of the right shoulder. No focal tenderness to palpation of the acromioclavicular joint or bicipital groove. INTEGUMENTARY: No rash or other significant dermatologic conditions noted. NEUROLOGIC: Right upper extremity is sensory intact. Cranial nerves II through XII grossly intact. No focal neurologic deficits noted. Medical Decision & Procedures Medications Administered Medications (Trade) Dose Ordered Sig/Lizzie Route Start Time Stop Time Status Last Admin Dose Admin Prochlorperazine Edisylate (Compazine Inj) 10 mg NOW STAT IM 11/17/17 17:44 11/17/17 17:46 DC 11/17/17 17:57 10 MG Ketorolac Tromethamine (Toradol Inj) 60 mg NOW STAT IM 11/17/17 17:44 11/17/17 17:46 DC 11/17/17 17:56 60 MG Diphenhydramine HCl (Benadryl Inj) 50 mg NOW STAT IM 11/17/17 17:44 11/17/17 17:46 DC 11/17/17 17:56 50 MG ED Course Patient history and physical exam were performed. Nurse's notes were reviewed. Vital signs were reviewed and were normal. I did review prior documentation, showing a history of frequent visits for headaches. He was here recently on . He had an acute onset of headache at that time. CT scan of the head was recommended, but the patient refused. I also reviewed medications that were administered on that visit. I also reviewed a visit from 06/25/17 showing that the patient was administered IM Toradol and provided prescriptions for Naprosyn. He reports that the Naprosyn did not help. It was recommended that he see pain management to discuss further options. Because this is a Worker's Compensation injury, the patient reports that he has been having difficulty with Worker's Compensation, stating that his previous doctor wanted to return him to work. The patient was offered and accepted treatment with intramuscular injections today. He was administered Benadryl 50 mg, Compazine 10 mg and Toradol 60 mg IM. The patient reported that he would call for a ride. The patient refused any CT imaging again today. He was encouraged to follow-up with his neurosurgeon and Worker's Compensation physician for further management. The patient was happy with plan of care, voiced understanding of all discharge instructions, and rated his discomfort a 4 out of 10 at the time of discharge with a friend. Medical Decision Medication Reconcilliation Current Medication List: was personally reviewed by me Blood Pressure Screening Patient's blood pressure: Normal blood pressure Impression Primary Impression: Headache Additional Impression: Chronic neck pain Departure Information Prescriptions No Active Prescriptions or Reported Meds Referrals No Doctor, Assigned (PCP) Patient Instructions My [facility] Problem Qualifiers Primary Impression: Headache Headache type: unspecified Headache chronicity pattern: acute headache Intractability: not intractable Qualified Codes: R51 - Headache
== END 2017-11-17 18:34 | disposition home or self-care (01) ==
LOC: C.EDB 17:01 → C.EDC 18:34
DX: R51 Headache (principal); M54.2 Cervicalgia; M94.0 Chondrocostal junction syndrome [Tietze]; Z83.3 Family history of diabetes mellitus; Z82.49 Family history of ischemic heart disease and other diseases of the circulatory system; F17.200 Nicotine dependence, unspecified, uncomplicated

== ENCOUNTER 2017-12-13 17:29 | Emergency (ER) | payer OTHER ==
[~2017-12-13] VITALS: Ht 170.2 cm; Wt 56.2 kg
[2017-12-13 17:38] VITALS: TEMP 36.5; Ht 170.2 cm; Wt 56.2 kg
[2017-12-13] MEDS ORDERED: ONDANSETRON INJ 2 MG/ML 2 ML VIAL IV STA (19:40)
[2017-12-13] MEDS ORDERED: SODIUM CHLORIDE 0.9% 1000ML 1,000 ML IV STA (19:40)
[2017-12-13] MEDS ORDERED: OPTIRAY 320 IV PRN (19:45)
[2017-12-13 20:03] LABS: BASO % 0.2 %; BASO ABS # 0.02 K/uL (0-0.2); EOS % 1.4 %; EOS ABS # 0.11 K/uL (0-0.5); HEMATOCRIT 45.1 % (42-52); HEMOGLOBIN 16.2 g/dL (14.0-18.0); IG# 0.02 K/uL (0.00-0.02); LYMPH ABS # 2.25 K/uL (1.2-3.4); MEAN CELL VOLUME 84.6 fL (80-100); MEAN CORPUSCULAR HEMOGLOBIN 30.4 pg (25-34); MEAN CORPUSCULAR HGB CONC 35.9 g/dl (32-36); MEAN PLATELET VOLUME 10.8 fL (7.4-10.4); MONO % 7.7 %; MONO ABS # 0.62 K/uL (0.11-0.59); NEUT % 62.5 %; NEUT ABS # 5.01 K/uL (1.4-6.5); PLATELET COUNT 203 K/uL (130-400); RED CELL DISTRIBUTION WIDTH CV 12.7 % (11.5-14.5); RED CELL DISTRIBUTION WIDTH SD 38.7 fL (36.4-46.3); WHITE BLOOD COUNT 8.03 K/uL (4.8-10.8)
[2017-12-13 20:20] LABS: ALBUMIN 4.1 gm/dl (3.4-5.0); CREATININE 0.9 mg/dl (0.60-1.40); POTASSIUM 3.6 mmol/L (3.5-5.1)
[2017-12-13 20:23] LABS: TOTAL PROTEIN 7.1 gm/dl (6.4-8.2)
--- NOTE | 2017-12-13 21:11 | DIAGNOSTIC IMAGING REPORT ---
NECK ANGIO WITH CONTRAST, ANGIOGRAPHY HEAD COMBO CLINICAL HISTORY: 27 years-old Male presents with acute head and neck pain with vomiting COMPARISON STUDY: CT cervical spine 12/25/2016, CT head 12/25/2016 TECHNIQUE: Following the IV administration of 100 of Optiray 320, CT angiogram of the head and neck was performed from the aortic arch to the skull base. Noncontrast CT images of the head were also obtained. Images are reviewed in the axial, sagittal, and coronal planes. 3-D MIPS images are created and assessed. IV contrast was administered without complication. All measurements were calculated based on NASCET criteria. A dose lowering technique was utilized adhering to the principles of ALARA. CT DOSE: 1104.92 mGy.cm FINDINGS: CTA NECK: Normal-appearing three-vessel aortic arch. The bilateral subclavian arteries are widely patent. The bilateral common carotid and internal carotid arteries are widely patent and unremarkable. The bilateral vertebral arteries are also widely patent and unremarkable. The basilar artery appears normal. No high-grade stenosis, aneurysm, dissection or proximal branch occlusion. No pneumothorax. Homogeneous thyroid. No adenopathy. Bones appear intact. No significant degenerative changes. Mild straightening of the normal cervical lordosis. CTA HEAD: Imaged bilateral internal carotid arteries are widely patent. The middle and anterior cerebral arteries appear widely patent. The left anterior to right ureter is hypoplastic. The imaged bilateral vertebral arteries are patent and appear normal. The basilar artery is widely patent and unremarkable. origin of the left posterior cerebral artery. Bilateral posterior cerebral arteries are widely patent. Cerebral venous sinuses are patent and unremarkable. No acute intracranial abnormality identified. Bilateral basal ganglia calcifications appear unchanged. No acute intracranial hemorrhage, midline shift, abnormal extra-axial collections, hydrocephalus or territorial ischemia. No skull fracture. Mastoid air cells are clear. Small left adolfo bullosa. IMPRESSION: 1. Unremarkable CTA of the head and neck without aneurysm, dissection, high-grade stenosis or proximal branch occlusion. 2. No acute intracranial abnormality identified. The above report was generated using voice recognition software. It may contain grammatical, syntax or spelling errors. Electronically signed by: Trey Trinh M.D. 12/13/2017 9:10 PM Dictated Date/Time: 12/13/2017 9:01 PM
[2017-12-13] MEDS ORDERED: PHENERGAN 25MG HOMEPACK PO ONE (21:30)
[2017-12-13 21:45] VITALS: BP 109/71; PULSE 65; O2SAT 99
--- NOTE | 2017-12-13 22:12 | EMERGENCY ROOM VISIT NOTE ---
History Report prepared by Zabrina: Antoinette Granger Under the Supervision of: Dr. Tyler Collins M.D. First contact with patient: 19:24 Chief Complaint: NEURO SYMPTOMS Stated Complaint: HEADACHE, ARMS NUMB- Nursing Triage Summary: Patient ambulatory to triage with an upright and steady gait, states "On the I had a procedure for thoracic outlet syndrome. The cut me in my groin and put wires up through me. I don't know if they're still in me. I know there's a plug in my groin. I think it dissolves. Since then, I have been lightheaded and dizzy with a headache and numbness in my right arm. I have had a headache and vomiting since the procedure." History of Present Illness The patient is a 27 year old male who presents to the Emergency Room with complaints of persistent headache starting 2 days ago. The patient had a procedure for thoracic outlet syndrome 2 days ago. He reports that they were unable to fix the problem. The patient had a headache and vomiting after the procedure. He was given morphine in the hospital and discharged home. Since he has been home, he has had a headache, nausea, and vomiting. The headache was behind her right eye last night. It is now behind his left eye. He rates his headache as an 8/10 in severity. He has tried taking Tylenol and ibuprofen to no significant relief. He reports neck pain and lower back pain. He has some groin pain near the procedure site. He reports that he has been having headaches and right arm numbness since a work accident in which he broke his neck and back in 2016. He previously did not have any vomiting. Pt denies LOC, fevers, chills, diaphoresis, visual changes, chest pain, breathing difficulties , abdominal pain, melena, hematochezia, urinary symptoms, weakness, lymphadenopathy, rash, or other complaints. Source of History: patient Onset: 2 days ago Position: head Symptom Intensity: 8/10 Quality: ache Timing: other (persistent) Associated Symptoms: + neck pain, + nausea, + vomiting, + back pain Review of Systems See HPI for pertinent positives and negatives. A total of ten systems were reviewed and were otherwise negative. Past Medical & Surgical Medical Problems: (1) Acute bronchitis (2) Cough (3) Dental caries (4) Pain, dental (5) Thoracic outlet syndrome (6) Tietze's Disease Family History FH: diabetes mellitus FH: hypertension Social History Smoking Status: Current Every Day Smoker Alcohol Use: none Drug Use: none Marital Status: in relationship Housing Status: lives with significant other Occupation Status: employed Current/Historical Medications No Active Prescriptions or Reported Meds Allergies Coded Allergies: No Known Allergies (Verified , 12/13/17) Physical Exam Vital Signs Date Time Temp Pulse Resp B/P (MAP) Pulse Ox O2 Delivery O2 Flow Rate FiO2 12/13/17 21:45 65 18 109/71 99 Room Air 12/13/17 20:00 62 12/13/17 19:49 64 18 93/73 98 Room Air 12/13/17 17:38 36.5 96 16 106/71 100 Room Air Physical Exam GENERAL: Awake, alert, uncomfortable-appearing, in no distress HENT: Normocephalic, atraumatic. Oropharynx unremarkable. EYES: Normal conjunctiva. Sclera non-icteric. NECK: Supple. No nuchal rigidity. FROM. No masses. RESPIRATORY: Clear to auscultation. No wheezes. No rales. Normal respiratory effort. CARDIAC: Normal rate. Normal rhythm. No murmurs. No rubs. Extremities warm and well perfused. Pulses equal. No JVD. GI: Soft, non-distended. No tenderness to palpation. No rebound or guarding. No masses. RECTAL: Deferred. MUSCULOSKELETAL: Atraumatic. Chest examination reveals no tenderness. The back is symmetrical on inspection without obvious abnormality. There is no CVA tenderness to palpation. No joint edema. LOWER EXTREMITIES: Calves are equal size bilaterally and non-tender. No edema. No discoloration. NEURO: Normal sensorium. No sensory or motor deficits noted. SKIN: No rash or jaundice noted. Medical Decision & Procedures ER Provider Diagnostic Interpretation: Radiology results as stated below per my review and radiologist interpretation: NECK ANGIO WITH CONTRAST, ANGIOGRAPHY HEAD COMBO CLINICAL HISTORY: 27 years-old Male presents with acute head and neck pain with vomiting COMPARISON STUDY: CT cervical spine 12/25/2016, CT head 12/25/2016 TECHNIQUE: Following the IV administration of 100 of Optiray 320, CT angiogram of the head and neck was performed from the aortic arch to the skull base. Noncontrast CT images of the head were also obtained. Images are reviewed in the axial, sagittal, and coronal planes. 3-D MIPS images are created and assessed. IV contrast was administered without complication. All measurements were calculated based on NASCET criteria. A dose lowering technique was utilized adhering to the principles of ALARA. CT DOSE: 1104.92 mGy.cm FINDINGS: CTA NECK: Normal-appearing three-vessel aortic arch. The bilateral subclavian arteries are widely patent. The bilateral common carotid and internal carotid arteries are widely patent and unremarkable. The bilateral vertebral arteries are also widely patent and unremarkable. The basilar artery appears normal. No high-grade stenosis, aneurysm, dissection or proximal branch occlusion. No pneumothorax. Homogeneous thyroid. No adenopathy. Bones appear intact. No significant degenerative changes. Mild straightening of the normal cervical lordosis. CTA HEAD: Imaged bilateral internal carotid arteries are widely patent. The middle and anterior cerebral arteries appear widely patent. The left anterior to right ureter is hypoplastic. The imaged bilateral vertebral arteries are patent and appear normal. The basilar artery is widely patent and unremarkable. origin of the left posterior cerebral artery. Bilateral posterior cerebral arteries are widely patent. Cerebral venous sinuses are patent and unremarkable. No acute intracranial abnormality identified. Bilateral basal ganglia calcifications appear unchanged. No acute intracranial hemorrhage, midline shift, abnormal extra-axial collections, hydrocephalus or territorial ischemia. No skull fracture. Mastoid air cells are clear. Small left adolfo bullosa. IMPRESSION: 1. Unremarkable CTA of the head and neck without aneurysm, dissection, high-grade stenosis or proximal branch occlusion. 2. No acute intracranial abnormality identified. The above report was generated using voice recognition software. It may contain grammatical, syntax or spelling errors. Electronically signed by: Trey Trinh M.D. 12/13/2017 9:10 PM Dictated Date/Time: 12/13/2017 9:01 PM Laboratory Results 12/13/17 19:43 Red Blood Count 5.33, Mean Corpuscular Volume 84.6, Mean Corpuscular Hemoglobin 30.4, Mean Corpuscular Hemoglobin Concent 35.9, Mean Platelet Volume 10.8, Neutrophils (%) (Auto) 62.5, Lymphocytes (%) (Auto) 28.0, Monocytes (%) (Auto) 7.7, Eosinophils (%) (Auto) 1.4, Basophils (%) (Auto) 0.2, Neutrophils # (Auto) 5.01, Lymphocytes # (Auto) 2.25, Monocytes # (Auto) 0.62, Eosinophils # (Auto) 0.11, Basophils # (Auto) 0.02 12/13/17 19:43 Test 12/13/17 19:43 12/13/17 20:30 White Blood Count 8.03 K/uL (4.8-10.8) Red Blood Count 5.33 M/uL (4.7-6.1) Hemoglobin 16.2 g/dL (14.0-18.0) Hematocrit 45.1 % (42-52) Mean Corpuscular Volume 84.6 fL (80-100) Mean Corpuscular Hemoglobin 30.4 pg (25-34) Mean Corpuscular Hemoglobin Concent 35.9 g/dl (32-36) Platelet Count 203 K/uL (130-400) Mean Platelet Volume 10.8 fL (7.4-10.4) Neutrophils (%) (Auto) 62.5 % Lymphocytes (%) (Auto) 28.0 % Monocytes (%) (Auto) 7.7 % Eosinophils (%) (Auto) 1.4 % Basophils (%) (Auto) 0.2 % Neutrophils # (Auto) 5.01 K/uL (1.4-6.5) Lymphocytes # (Auto) 2.25 K/uL (1.2-3.4) Monocytes # (Auto) 0.62 K/uL (0.11-0.59) Eosinophils # (Auto) 0.11 K/uL (0-0.5) Basophils # (Auto) 0.02 K/uL (0-0.2) RDW Standard Deviation 38.7 fL (36.4-46.3) RDW Coefficient of Variation 12.7 % (11.5-14.5) Immature Granulocyte % (Auto) 0.2 % Immature Granulocyte # (Auto) 0.02 K/uL (0.00-0.02) Anion Gap 7.0 mmol/L (3-11) Est Creatinine Clear Calc Drug Dose 96.3 ml/min Estimated GFR () 133.3 Estimated GFR (Non- 115.0 BUN/Creatinine Ratio 15.6 (10-20) Calcium Level 9.0 mg/dl (8.5-10.1) Total Bilirubin 0.5 mg/dl (0.2-1) Direct Bilirubin 0.1 mg/dl (0-0.2) Aspartate Amino Transf (AST/SGOT) 13 U/L (15-37) Alanine Aminotransferase (ALT/SGPT) 15 U/L (12-78) Alkaline Phosphatase 61 U/L (45-117) Total Protein 7.1 gm/dl (6.4-8.2) Albumin 4.1 gm/dl (3.4-5.0) Urine Color YELLOW Urine Appearance CLEAR (CLEAR) Urine pH 6.5 (4.5-7.5) Urine Specific Norris 1.022 (1.000-1.030) Urine Protein NEG (NEG) Urine Glucose (UA) NEG (NEG) Urine Ketones 1+ (NEG) Urine Occult Blood NEG (NEG) Urine Nitrite NEG (NEG) Urine Bilirubin NEG (NEG) Urine Urobilinogen NEG (NEG) Urine Leukocyte Esterase NEG (NEG) Laboratory results reviewed by me Medications Administered Medications (Trade) Dose Ordered Sig/Lizzie Route Start Time Stop Time Status Last Admin Dose Admin Sodium Chloride 1,000 ml @ 999 mls/hr Q1H1M STAT IV 12/13/17 19:40 12/13/17 20:40 DC 12/13/17 19:53 999 MLS/HR Ondansetron HCl (Zofran Inj) 4 mg NOW STAT IV 12/13/17 19:40 12/13/17 19:42 DC 12/13/17 19:53 4 MG ECG Per My Interpretation Indication: other (dizziness) Rate (beats per minute): 63 Rhythm: normal sinus Findings: no acute ischemic change, no ectopy, other (normal intervals) ED Course 1929: The patient was evaluated in room C12B. A complete history and physical exam was performed. 1939: Zofran Inj 4 mg IV, Sodium Chloride 1000 ml @ 999 mls/hr IV. 1951: Obtained old records. Angiography done on the showed no signs of thoracic outlet syndrome. They did note that they were unable to visualize the blood vessels below the elbow. They recommended MRA and outpatient follow up. 2122: I reevaluated the patient. He feels much better. His headache has resolved. He will follow up tomorrow with doctors in [place]. Discussed results and discharge instructions: He verbalized understanding and agreement. The patient is ready for discharge. 2129: Promethazine HCl 1 homepack PO. Medical Decision Prior records/ancillary studies reviewed. Triage Nursing notes reviewed and agree them. The patient's history was concerning for headache. Differential diagnosis: Etiologies such as complication of recent vascular procedure, migraine headache , meningitis, sinusitis, CO exposure, ICH, SAH, infection, tumor, headache, sinus thrombosis, arterial dissection, as well as others were entertained. Physical examination findings: As above. Non-focal. ER treatment provided: IV normal saline hydration IV Zofran On reassessment the patient felt better. His headache resolved Diagnostics interpreted by me: The labs revealed an unremarkable CBC and chemistry panel. Imaging studies: CT angiograms as above. The patient does not appear to have any vascular abnormality or intracranial abnormality secondary to his procedure or ongoing issues. Record review indicates he has had frequent headache problems. He had antiemetics and fluids here he did very well. His headache resolved. He did not require any narcotics. Drug database reviewed and no significant issues noted. The patient 's outpatient angiogram results were reviewed and it was recommended that he have an MRI of his distal right arm. The patient was aware this and has a follow-up tomorrow. I did ask him to follow-up with his primary physician because he is getting recurrent headaches. He may need referral or maintenance medications. That is most appropriately done from the primary office. The patient was given a Phenergan home pack in case his nausea returns. By the evaluation outlined above emergent etiologies such as meningitis, sinusitis, CO exposure, ICH, SAH, infection, temporal arteritis, tumor, sinus thrombosis, arterial dissection, as well as others were deemed relatively unlikely. The patient was informed about the findings as listed above. All questions were answered and he was pleased with the treatment. Return instructions were outlined and the patient was discharged in stable condition. Outpatient prescription management: Phenergan home Referral: The patient was referred back to his specialist and his primary care physician for follow-up in 2 to 3 days for a recheck of the current condition. [place] Drug Monitoring Program Search Results: patient reviewed within database, no issues identified Medication Reconcilliation Current Medication List: was personally reviewed by me Blood Pressure Screening Patient's blood pressure: Normal blood pressure Blood pressure disposition: Did not require urgent referral Impression Primary Impression: Headache Additional Impression: Nausea & vomiting Scribe Attestation The scribe's documentation has been prepared under my direction and personally reviewed by me in its entirety. I confirm that the note above accurately reflects all work, treatment, procedures, and medical decision making performed by me. Departure Information Dispostion Home / Self-Care Prescriptions No Active Prescriptions or Reported Meds Referrals Ann Pruitt M.D. (MEDICAL) Forms HOME CARE DOCUMENTATION FORM, IMPORTANT VISIT INFORMATION, WORK / SCHOOL INSTRUCTIONS Patient Instructions My [facility] Additional Instructions HEADACHE INSTRUCTIONS: Rest today in a quiet, peaceful, dark environment and get a full 8-10 hrs of sleep tonight. Avoid loud noises, smoke/smoking, alcohol, bright lights, stress, or physical exertion today to minimize the chance the headache may return. Continue current medications. Phenergan 25mg tabs, one every six hours for nausea or vomiting. Ibuprofen(Motrin, Advil) may be used for fever or pain. Use 600mg every six hours as needed. Take with food. Avoid using more than 2400mg in a 24 hour period. Do not use 2400mg per day for more than three consecutive days without physician direction. Prolonged inappropriate use can lead to stomach upset or ulcers. (AND/OR) Acetaminophen(Tylenol) may be used for fever or pain. Use 1000mg every six hours as needed. Avoid using more than 4000mg in a 24 hour period. Return to the ER for passing out, worsening headache, vision problems, neck stiffness/pain, fevers, vomiting, worsening of your condition, or as needed. Follow-up with your specialist as scheduled tomorrow. Follow up with your primary physician in 2-3 days for a recheck of your current condition. Problem Qualifiers
== END 2017-12-13 21:57 | disposition home or self-care (01) ==
LOC: C.EDB 17:30 → C.EDC 21:57
DX: R51 Headache (principal); R11.2 Nausea with vomiting, unspecified; G54.0 Brachial plexus disorders; F17.210 Nicotine dependence, cigarettes, uncomplicated

== ENCOUNTER 2017-12-16 17:36 | Emergency (ER) | payer OTHER ==
[~2017-12-16] VITALS: Ht 170.2 cm; Wt 58.4 kg
[2017-12-16 17:43] VITALS: BP 104/75; PULSE 92; TEMP 37; O2SAT 98; Ht 170.2 cm; Wt 58.4 kg
--- NOTE | 2017-12-16 18:20 | EMERGENCY ROOM VISIT NOTE ---
History Report prepared by Zabrina: Ubaldo Antoine Under the Supervision of: Dr. Magnus Dahl D.O. First contact with patient: 18:07 Chief Complaint: LEG PAIN,LEG INJURY Stated Complaint: R LEG PAIN History of Present Illness The patient is a 27 year old male who presents to the Emergency Room with complaints of worsening pain in the leg thigh/groin that began on the , 5 days ago following a surgical procedure. The patient states that he had catheters inserted up the femoral artery into the right chest due to possible "Outlet Syndrome" and blockage in the right chest. The procedure did not find anything in the chest. The patient states that the pain has been there since the procedure, but has been progressively worsening. The pain is worsened further by movement and walking. There is no shortness of breath. Source of History: patient Onset: 5 days ago Position: leg (right) Timing: worsening Modifying Factors (Worsening): movement (and walking) Associated Symptoms: No SOB Review of Systems See HPI for pertinent positives & negatives. A total of 10 systems reviewed and were otherwise negative. Past Medical & Surgical Medical Problems: (1) Acute bronchitis (2) Cough (3) Dental caries (4) Pain, dental (5) Thoracic outlet syndrome (6) Tietze's Disease Family History FH: diabetes mellitus FH: hypertension Social History Smoking Status: Current Every Day Smoker Alcohol Use: none Drug Use: none Marital Status: in relationship Housing Status: lives with significant other Occupation Status: employed Current/Historical Medications No Active Prescriptions or Reported Meds Allergies Coded Allergies: No Known Allergies (Verified , 12/13/17) Physical Exam Vital Signs Date Time Temp Pulse Resp B/P (MAP) Pulse Ox O2 Delivery O2 Flow Rate FiO2 12/16/17 17:43 37.0 92 17 104/75 98 Room Air Physical Exam CONSTITUTIONAL/VITAL SIGNS: Reviewed / noted above. GENERAL: Non-toxic in appearance. INTEGUMENTARY: Warm, dry, and [place]. HEAD: Normocephalic. EYES: without scleral icterus or trauma. ENT/OROPHARYNX: clear and moist. LYMPHADENOPATHY/NECK: Is supple without lymphadenopathy or meningismus. RESPIRATORY: Lungs clear and equal. CARDIOVASCULAR: Regular rate and rhythm. GI/ABDOMEN: Soft and nontender. No organomegaly or pulsatile mass. No rebound or guarding. Normal bowel sounds. EXTREMITIES: Warm and well perfused. There is mild tenderness in the right groin to palpation. BACK: No CVA tenderness. NEUROLOGICAL: Intact without focal deficits. PSYCHIATRIC: normal affect. MUSCULOSKELETAL: Normally developed with good muscle tone. Medical Decision & Procedures ER Provider Diagnostic Interpretation: Radiology results as stated below per my review and radiologist interpretation: R ART DOP DUPLEX LWR EXT UNI CLINICAL HISTORY: rt groin pain after catheterization r/o pseudoaneurysm TECHNIQUE: Real-time and Doppler ultrasound COMPARISON STUDY: None FINDINGS: Ultrasonic evaluation of the right groin shows no evidence for hematoma or collection. All major venous and arterial structures are intact. There is no evidence for pseudoaneurysm. IMPRESSION: Negative study. No evidence for hematoma, pseudoaneurysm, or vascular occlusion. The above report was generated using voice recognition software. It may contain grammatical, syntax or spelling errors. Electronically signed by: Avery Atwood M.D. 12/16/2017 7:17 PM Dictated Date/Time: 12/16/2017 7:16 PM ED Course 1812: Previous medical records were reviewed. The patient was evaluated in room C11B. A complete history and physical examination was performed. 1950:: On reevaluation, the patient is resting in bed. I discussed the results and findings with the patient. He verbalized agreement of the treatment plan. The patient was discharged home. Medical Decision Differential diagnosis: Etiologies such as DVT, pseudoaneurysm, musculoskeletal, infection, joint effusion, trauma, lymphedema, idiopathic, CHF, as well as others were entertained.. This is a 27-year-old male who presents to the ED with a chief complaint of right groin and thigh pain. The patient states that he had a catheterization in the right groin to evaluate thoracic outlet syndrome. He states that nothing was found as a cause for his right arm symptoms that are chronic. The patient reports some right groin and right lateral thigh pain since the time of the procedure on 12/11/17. The patient has a relatively unremarkable exam with exception of some mild tenderness in the right groin. There is no significant swelling or bruits. Distally there is no edema and pulses are intact. There is no abnormal findings with regards to visual inspection and palpation of the lateral thigh. Ultrasound of the groin did not reveal any abnormalities. The patient was told the results. He was felt to be stable for discharge. Medication Reconcilliation Current Medication List: was personally reviewed by me Blood Pressure Screening Patient's blood pressure: Normal blood pressure Impression Primary Impression: Rt groin pain Scribe Attestation The scribe's documentation has been prepared under my direction and personally reviewed by me in its entirety. I confirm that the note above accurately reflects all work, treatment, procedures, and medical decision making performed by me. Departure Information Dispostion Home / Self-Care Prescriptions No Active Prescriptions or Reported Meds Referrals No Doctor, Assigned (PCP) Patient Instructions My [facility] Additional Instructions Take Tylenol Motrin for pain. Follow-up with your doctor for further care and evaluation in 1-2 days. Return to the emergency department for worsening or new symptoms or any concerns. You have been examined and treated today on an emergency basis only. This is not a substitute for, or an effort to provide, complete comprehensive medical care. It is impossible to recognize and treat all injuries or illnesses in a single emergency department visit. It is therefore important that you follow up closely with your doctor. Call as soon as possible for an appointment.
--- NOTE | 2017-12-16 19:18 | DIAGNOSTIC IMAGING REPORT ---
R ART DOP DUPLEX LWR EXT UNI CLINICAL HISTORY: rt groin pain after catheterization r/o pseudoaneurysm TECHNIQUE: Real-time and Doppler ultrasound COMPARISON STUDY: None FINDINGS: Ultrasonic evaluation of the right groin shows no evidence for hematoma or collection. All major venous and arterial structures are intact. There is no evidence for pseudoaneurysm. IMPRESSION: Negative study. No evidence for hematoma, pseudoaneurysm, or vascular occlusion. The above report was generated using voice recognition software. It may contain grammatical, syntax or spelling errors. Electronically signed by: Avery Atwood M.D. 12/16/2017 7:17 PM Dictated Date/Time: 12/16/2017 7:16 PM
== END 2017-12-16 20:00 | disposition home or self-care (01) ==
LOC: C.EDB 17:37 → C.EDC 20:00
DX: M79.651 Pain in right thigh (principal); R10.30 Lower abdominal pain, unspecified; M94.0 Chondrocostal junction syndrome [Tietze]; G54.0 Brachial plexus disorders; F17.200 Nicotine dependence, unspecified, uncomplicated